=== PATIENT | male | born 1975 | race Caucasian/White ===

== ENCOUNTER 2020-01-03 22:02 | Inpatient (IN) | payer BC, OTHER ==
[~2020-01-03] VITALS: Ht 182.9 cm; Wt 113.4 kg
[2020-01-03 22:02] VITALS: BP_SYST 153
[~2020-01-03 22:02] MED LIST: LISI-600 PO
[2020-01-03] MEDS ORDERED: methylPREDNISolone SOD SUCC/PF 62.5 MG/ML VIAL IVP ONE (22:15)
[2020-01-03 22:31] LABS: BASOPHILS % (AUTO) 0.5 % (0.0-2.0); EOSINOPHILS # (AUTO) 0.4 K/uL (0.0-0.4); EOSINOPHILS % (AUTO) 4.7 % (0.0-4.0); HEMATOCRIT 45.5 % (36-54); HEMOGLOBIN 15.3 g/dL (14.0-18.0); LYMPHOCYTES # (AUTO) 2.6 K/uL (1.0-5.5); LYMPHOCYTES % (AUTO) 31.1 % (20.5-51.5); MEAN CORPUSCULAR HEMOGLOBIN 31 pg (27-31); MEAN CORPUSCULAR HGB CONC 34 % (32-36); MEAN CORPUSCULAR VOLUME 91 fL (79.0-98.0); MONOCYTES # (AUTO) 0.9 K/uL (0.0-1.0); MONOCYTES % (AUTO) 10.5 % (1.7-9.3); NEUTROPHILS # (AUTO) 4.4 K/uL (1.8-7.7); NEUTROPHILS % (AUTO) 53.2 % (40.0-70.0); PLATELET COUNT (AUTO) 282 K/uL (130-430); RED BLOOD CELL COUNT(AUTO) 4.98 MIL/uL (4.2-6.2); RED CELL DISTRIBUTION WIDTH 12.4 % (9.0-15.0); WHITE BLOOD COUNT (AUTO) 8.2 K/uL (4.8-10.8)
[2020-01-03 22:41] LABS: CALCIUM 9.2 mg/dL (8.4-11.0); CREATININE 1.3 mg/dL (0.55-1.30); POTASSIUM 4.2 mmol/L (3.5-5.1)
[2020-01-03 22:46] LABS: PROTHROMBIN TIME 10.1 SECS (9.5-12.5)
[2020-01-03 22:47] LABS: ALBUMIN 3.8 g/dL (3.4-4.8); TOTAL BILIRUBIN 0.4 mg/dL (0.0-1.0)
[2020-01-03] MEDS ORDERED: VANCOMYCIN HCL 1,000 MG in NS 250 ML IV ONE (23:45)
[2020-01-03] MEDS ORDERED: NACL 0.9% 1,000 ML IV ONE (23:45)
[2020-01-04] MEDS ORDERED: VANCOMYCIN HCL 1000 MG/VIAL IV ONE (00:50)
[2020-01-04] MEDS ORDERED: NOR10 PO (01:03)
[2020-01-04] MEDS ORDERED: ALBU8.5H8 INH (01:03)
[2020-01-04 02:13] VITALS: BP_SYST 150
[2020-01-04 02:17] LABS: BILIRUBIN,URINE NEGATIVE (NEGATIVE); BLOOD, URINE NEGATIVE (NEGATIVE); CLARITY/URINE CLEAR (CLEAR); COLOR,URINE YELLOW (YELLOW); GLUCOSE,URINE NEGATIVE (NEGATIVE); KETONES,URINE NEGATIVE (NEGATIVE); LEUKOCYTE ESTERASE ,URINE NEGATIVE (NEGATIVE); NITRITE, URINE NEGATIVE (NEGATIVE); PROTEIN URINE NEGATIVE (NEGATIVE); UROBILINOGEN,URINE 0.2 (0.2-1.0)
[2020-01-04] MEDS: IPRATROPIUM/ALBUTEROL SULFATE 3 ML AMPUL.NEB (DUONEB) INH SCH ×6 (02:44→23:35)
[2020-01-04 03:46] VITALS: BP_SYST 136
[2020-01-04] MEDS: FAMOTIDINE PF 20 MG/2 ML VIAL IVP SCH ×2 (05:10→20:10)
[2020-01-04 08:01] VITALS: BP_SYST 156
[2020-01-04] MEDS: MAG-AL HYDROX/SIMETH 30 ML UDC PO SCH ×4 (08:35→20:10)
[2020-01-04] MEDS: ACETAMINOPHEN 325 MG TABLET PO PRN ×2 (08:35→20:10)
[2020-01-04 11:10] LABS: BARBITURATE, URINE NEGATIVE (NEG <=200); BENZODIAZEPINE, URINE NEGATIVE (NEG <=150); CANNABINOID, URINE NEGATIVE (NEG <=50); COCAINE, URINE NEGATIVE (NEG <=150); METHAMPHETAMINES SCREEN,URINE NEGATIVE (NEG <=500); OPIATE, URINE NEGATIVE (NEG <=100); PHENCYCLIDINE SCREEN,URINE NEGATIVE (NEG <=25); UR TRICYCLIC ANTIDEPRESSANTS NEGATIVE (NEG <=300); URINE AMPHETAMINE NEGATIVE (NEG <=500); URINE METHADONE NEGATIVE (NEG <=200); URINE OXYCODONE SCREEN NEGATIVE (NEG <=100); URINE PROPOXYPHENE SCREEN NEGATIVE (NEG <=300)
[2020-01-04 12:23] VITALS: BP_SYST 130
[2020-01-04] MEDS ORDERED: methylPREDNISolone SOD SUCC 40 MG/ML VIAL IVP ONE (15:45)
[2020-01-04 16:33] VITALS: BP_SYST 143
[2020-01-04] MEDS: methylPREDNISolone SOD SUCC 40 MG/ML VIAL IVP SCH (20:09)
[2020-01-04 20:20] VITALS: BP_SYST 157
[2020-01-05 00:37] VITALS: BP_SYST 148
[2020-01-05] MEDS: IPRATROPIUM/ALBUTEROL SULFATE 3 ML AMPUL.NEB (DUONEB) INH SCH ×4 (03:00→15:21)
[2020-01-05 08:00] VITALS: BP_SYST 136
[2020-01-05] MEDS: MAG-AL HYDROX/SIMETH 30 ML UDC PO SCH ×2 (09:39→13:00)
[2020-01-05] MEDS: methylPREDNISolone SOD SUCC 40 MG/ML VIAL IVP SCH (09:39)
[2020-01-05 12:00] VITALS: BP_SYST 138
[2020-01-05] MEDS ORDERED: FAMO20TA8 PO (13:54)
[2020-01-05] MEDS ORDERED: DOXY100C PO (13:56)
[2020-01-05] MEDS ORDERED: ALBU8.5H8 INH (13:56)
[2020-01-05] MEDS ORDERED: VITD2000 PO (13:59)
[2020-01-05 14:46] VITALS: BP_SYST 134
== END 2020-01-05 15:40 | disposition home or self-care (01) | DRG 193 ==
LOC: SED 22:02 → STU 01-04 00:57
PROVIDERS: ADMIT Internal Medicine; ATTEND Internal Medicine
DX: J18.9 Pneumonia, unspecified organism (principal); J96.01 Acute respiratory failure with hypoxia; J45.901 Unspecified asthma with (acute) exacerbation; K21.9 Gastro-esophageal reflux disease without esophagitis; I10 Essential (primary) hypertension; E66.9 Obesity, unspecified; Z88.0 Allergy status to penicillin; Z79.899 Other long term (current) drug therapy; Z68.33 Body mass index [BMI] 33.0-33.9, adult
CPT/HCPCS: 36415; 71045; 71046-TC; 71250-TC; 80053; 80307; 81003; 83605; 83880; 84484; 85025; 85379; 85610-TC; 85651-TC; 85730-TC; 86710; 86738; 87040-TC; 93005; 94640; 96365; 96366; 96367; 96375; 99285; G0378; J1030; J1956; J2930; J3370; J3490

== ENCOUNTER 2023-08-13 09:13 | Inpatient (IN) | payer BC ==
[~2023-08-13] VITALS: Ht 167.6 cm; Wt 107.0 kg
[~2023-08-13 09:13] MED LIST changes: +ALBU8.5H8 INH; +DOXY100C PO; +FAMO20TA8 PO; -LISI-600 PO; +NOR10 PO; +VITD2000 PO
[2023-08-13 09:24] VITALS: BP_SYST 159; PULSE 95; RESP 18; TEMP 98; O2SAT 100
[2023-08-13 09:54] LABS: BASOPHILS # (AUTO) 0.1 K/uL (0.0-0.2); BASOPHILS % (AUTO) 1.2 % (0.0-2.0); EOSINOPHILS # (AUTO) 0.3 K/uL (0.0-0.4); EOSINOPHILS % (AUTO) 4.6 % (0.0-4.0); HEMATOCRIT 41.7 % (36-54); HEMOGLOBIN 14.3 g/dL (14.0-18.0); LYMPHOCYTES # (AUTO) 1.5 K/uL (1.0-5.5); LYMPHOCYTES % (AUTO) 24.1 % (20.5-51.5); MEAN CORPUSCULAR HEMOGLOBIN 31 pg (27-31); MEAN CORPUSCULAR HGB CONC 34 % (32-36); MEAN CORPUSCULAR VOLUME 89 fL (79.0-98.0); MONOCYTES # (AUTO) 0.7 K/uL (0.0-1.0); MONOCYTES % (AUTO) 10.7 % (1.7-9.3); NEUTROPHILS # (AUTO) 3.7 K/uL (1.8-7.7); NEUTROPHILS % (AUTO) 59.4 % (40.0-70.0); PLATELET COUNT (AUTO) 253 K/uL (130-430); RED CELL DISTRIBUTION WIDTH 12.3 % (9.0-15.0); WHITE BLOOD COUNT (AUTO) 6.3 K/uL (4.8-10.8)
[2023-08-13 10:06] LABS: ANION GAP 6 (5-15); CALCIUM 9.2 mg/dL (8.4-11.0); CARBON DIOXIDE 27 mmol/L (23-29); CHLORIDE 99 mmol/L (98-107); CREATININE 0.99 mg/dL (0.55-1.30); GFR AFRICAN AMERICAN 104 mL/min (>90); GLUCOSE 111 mg/dL (74-106); POTASSIUM 3.6 mmol/L (3.5-5.1); SODIUM SERUM 132 mmol/L (136-145); UREA NITROGEN, BLOOD 22 mg/dL (8-21)
[2023-08-13 10:07] LABS: GFR NON AFRICAN-AMERICAN 86 mL/min (>90)
[2023-08-13] MEDS ORDERED: ACETAMINOPHEN 325 MG TABLET PO PRN ×2 (12:45→13:15)
[2023-08-13] MEDS: NORMAL SALINE 5 ML DISP.SYRIN IVF SCH (13:58)
[2023-08-13 15:33] VITALS: BP_SYST 148; PULSE 67; RESP 16; TEMP 98.2; O2SAT 98
[2023-08-13 15:35] VITALS: BP_SYST 148; PULSE 67; RESP 16; TEMP 98.2; O2SAT 98
[2023-08-13 19:45] VITALS: BP_SYST 142; PULSE 72; RESP 20; TEMP 98.1; O2SAT 94
[2023-08-14] VITALS: BP_SYST 137; PULSE 64; RESP 16; TEMP 98.2; O2SAT 96
[2023-08-14] MEDS: NORMAL SALINE 5 ML DISP.SYRIN IVF SCH ×2 (03:32→07:03)
[2023-08-14 07:12] LABS: BASOPHILS % (AUTO) 0.6 % (0.0-2.0); EOSINOPHILS # (AUTO) 0.3 K/uL (0.0-0.4); EOSINOPHILS % (AUTO) 4.8 % (0.0-4.0); HEMATOCRIT 42.6 % (36-54); HEMOGLOBIN 14.2 g/dL (14.0-18.0); LYMPHOCYTES # (AUTO) 1.3 K/uL (1.0-5.5); LYMPHOCYTES % (AUTO) 23.4 % (20.5-51.5); MEAN CORPUSCULAR HEMOGLOBIN 30 pg (27-31); MEAN CORPUSCULAR HGB CONC 33 % (32-36); MEAN CORPUSCULAR VOLUME 89 fL (79.0-98.0); MONOCYTES # (AUTO) 0.5 K/uL (0.0-1.0); MONOCYTES % (AUTO) 10.1 % (1.7-9.3); NEUTROPHILS # (AUTO) 3.3 K/uL (1.8-7.7); NEUTROPHILS % (AUTO) 61.1 % (40.0-70.0); PLATELET COUNT (AUTO) 254 K/uL (130-430); RED BLOOD CELL COUNT(AUTO) 4.76 MIL/uL (4.2-6.2); RED CELL DISTRIBUTION WIDTH 12.6 % (9.0-15.0); WHITE BLOOD COUNT (AUTO) 5.4 K/uL (4.8-10.8)
[2023-08-14 07:15] LABS: CALCIUM 9.3 mg/dL (8.4-11.0); CREATININE 1.04 mg/dL (0.55-1.30)
[2023-08-14 07:27] LABS: ALBUMIN 3.7 g/dL (3.4-4.8); THYROID STIMULATING HORMONE 0.73 uIu/mL (0.34-4.82); TOTAL BILIRUBIN 0.8 mg/dL (0.0-1.0); TOTAL PROTEIN, SERUM 6.6 g/dL (6.4-8.3)
[2023-08-14 08:08] VITALS: BP_SYST 149; PULSE 74; RESP 19; TEMP 97.7; O2SAT 96
[2023-08-14] MEDS ORDERED: BENA20TA75 PO (09:36)
[2023-08-14] MEDS ORDERED: amLODIPine BESYLATE 10 MG TABLET PO ONE (11:15)
[2023-08-14] MEDS ORDERED: lisinopriL 20 MG TABLET PO ONE (11:15)
[2023-08-14 11:59] VITALS: BP_SYST 164; PULSE 82; RESP 16; TEMP 97.9; O2SAT 96
[2023-08-14 13:31] VITALS: BP_SYST 143; PULSE 80; RESP 18; TEMP 98.1; O2SAT 98
[2023-08-14] MEDS ORDERED: amLODIPine BESYLATE 10 MG TABLET PO SCH (21:00)
[2023-08-14] MEDS ORDERED: FAMOTIDINE 20 MG TABLET PO SCH (21:00)
[2023-08-15] MEDS ORDERED: amLODIPine BESYLATE 10 MG TABLET PO SCH (09:00)
[2023-08-15] MEDS ORDERED: lisinopriL 20 MG TABLET PO SCH (09:00)
== END 2023-08-14 13:55 | disposition home or self-care (01) | DRG 156 ==
LOC: SED 09:13 → STU 12:31
PROVIDERS: ADMIT Internal Medicine; ATTEND Internal Medicine
DX: R07.0 Pain in throat (principal); E66.9 Obesity, unspecified; G89.29 Other chronic pain; I10 Essential (primary) hypertension; J45.909 Unspecified asthma, uncomplicated; K21.9 Gastro-esophageal reflux disease without esophagitis; Z82.49 Family history of ischemic heart disease and other diseases of the circulatory system; Z88.0 Allergy status to penicillin; Z68.38 Body mass index [BMI] 38.0-38.9, adult
CPT/HCPCS: 36415; 70491-TC; 71045; 76376; 80048; 80053; 80061; 84443; 84484; 85025; 93005; G0378